=== PATIENT | male | born 1970 | race Caucasian/White ===

== ENCOUNTER 2016-11-10 12:11 | Emergency (ER) | payer OTHER ==
[~2016-11-10] VITALS: Ht 182.9 cm; Wt 76.2 kg
[~2016-11-10 12:11] MED LIST: AMOXICILLIN875 M1 PO; AMOXIL500 MG PO; BACTRIM DS 8001 TAB PO; BACTRIM DS TAB1 EACH PO; IBUPROFEN600 M1 PO; LOTRIMIN CR1 %/30 GM TOP; METFORMIN HCL500 MG PO; PAXIL20 MG PO; POLYTRIM EYE DR10 ML OPH
[2016-11-10 12:14] VITALS: BP 107/71
--- NOTE | 2016-11-10 12:43 | ED GI/GU/ABDOMINAL COMPLAINT ---
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, group managing director Exam Limitations: confusion, poor historian, physical impairment Vital Signs & Intake/Output Vital Signs & Intake/Output Vital Signs Date Time Temp Pulse Resp B/P B/P Pulse O2 O2 Flow FiO2 Mean Ox Delivery Rate 11/10 1214 98.0 82 18 107/71 95 Room Air Allergies Coded Allergies: NO KNOWN ALLERGIES (06/24/15) Reconcile Medications Amoxicillin 875 MG TABLET 1 TAB PO BID abscess/cellulitis Cephalexin (Keflex) 500 MG CAPSULE 1 CAP PO TID uti Ibuprofen 600 MG TABLET 1 TAB PO Q6PRN PRN pain with food Metformin Hydrochloride (Metformin HCl) 500 MG TAB 1 TAB PO DAILY DIABETES ( Reported) PAROXETINE HCL (Paxil) 20 MG TABLET 1 TAB PO AT BEDTIME UNKNOWN (Reported) Phenazopyridine HCl (Pyridium) 200 MG TABLET 1 TAB PO TID dysuria Polytrim (Polytrim Eye Drops) 10 ML DROPS 1 GTT OPH Q6 CONJUNCTIVITIS Sulfamethoxazole/Trimethoprim (Bactrim Ds Tablet) 800 MG-160 MG TABLET 1 TAB PO BID abscess/cellulitis Triage Note: PT TO ER VIA WHEELCHAIR FROM DETENTION FOR QUESTIONABLE UTI. PT IS INC AND WEARS BRIEF. STAFF UNABLE TO COLLECT URINE BUT STATES THAT URINE IS FOUL SMELLING Triage Nurses Notes Reviewed? yes Onset: Last week Duration: day(s):, continues in ED Timing: recent history Quality/Severity: fullness, moderate Location: suprapubic Radiation: no radiation Activities at Onset: none Prior Abdominal Problems: none Past Sexual History: Unobtainable at this time No Modifying Factors: none Associated Symptoms: dysuria HPI: 1 week prior to admission risk specialist reports patient has been holding his urine reporting that it is painful to urinate with bloating. There was no fever chills nausea vomiting diarrhea abdominal pain chest pain shortness breath headache rash bleeding. Past History Travel History Traveled to [place] past 21 day No Medical History Any Pertinent Medical History? see below for history Neurological: multiple sclerosis, MR CEREBAL PALSY SPASTIC DIPLEGIA MYOPIA AMBLYOPIA EENT: NONE Cardiovascular: NONE Respiratory: NONE Gastrointestinal: INCONTINENT Hepatic: NONE Renal: urinary incontinence, UTI Musculoskeletal: WOUND R ANKLE Psychiatric: depression Endocrine: diabetes Blood Disorders: NONE Cancer(s): NONE MANAGER TELEMETRY/Reproductive: NONE Surgical History Surgical History: non-contributory Psychosocial History What is your primary language Emirati Tobacco Use: Never used ETOH Use: denies use Illicit Drug Use: denies illicit drug use Family History Hx Contributory? No Review of Systems Review of Systems Constitutional: Reports: no symptoms. EENTM: Reports: no symptoms. Respiratory: Reports: no symptoms. Cardiovascular: Reports: no symptoms. GI: Reports: no symptoms. Genitourinary: Reports: see HPI, dysuria, pain. Musculoskeletal: Reports: no symptoms. Skin: Reports: no symptoms. Neurological/Psychological: Reports: no symptoms. Hematologic/Endocrine: Reports: no symptoms. Immunologic/Allergic: Reports: no symptoms. All Other Systems: Reviewed and Negative Physical Exam Physical Exam General Appearance: well developed/nourished, alert, awake, anxious, comfortable Head: atraumatic, normal appearance Eyes: Bilateral: normal appearance, PERRL, EOMI, normal inspection. Ears, Nose, Throat, Mouth: hearing grossly normal, moist mucous membrane Neck: normal inspection, supple, full range of motion, normal alignment Respiratory: normal breath sounds, chest non-tender, no respiratory distress, quiet respiration, lungs clear Cardiovascular: regular rate/rhythm, normal peripheral pulses, norml femoral pulses equa Peripheral Pulses: 4+ carotid (R), 4+ carotid (L) Gastrointestinal: normal bowel sounds, soft, non-tender, no organomegaly Male Genitals: normal genitalia Back: normal inspection, normal range of motion Extremities: normal range of motion, no ligament instability Neurologic/Psych: awake, alert, distribution designer II-XII nml as tested Skin: intact, normal color, warm/dry Core Measures ACS in differential dx? No Severe Sepsis Present: No Septic Shock Present: No Progress Differential Diagnosis: urinary retention, UTI/pyelo Plan of Care: Laboratory Tests 11/10/16 1241: Urine Color Cancelled, Urine Clarity Cancelled, Urine pH Cancelled, Ur Specific [place] Cancelled, Urine Protein Cancelled, Urine Ketones Cancelled, Urine Nitrite Cancelled, Urine Bilirubin Cancelled, Urine Urobilinogen Cancelled, Ur Leukocyte Esterase Cancelled, Ur Microscopic Cancelled, Urine Hemoglobin Cancelled, Urine Glucose Cancelled Microbiology 11/10 1241 URINE ROUT: Urine Culture - CAN Cancelled: Cancelled via OE: Per MD Decision Initial ED EKG: none Comments: Unable to catheterize patient. Will treat for presumptive UTI. No post void residual on bladder scan Departure Departure Time of Disposition: 1308 Disposition: HOME OR SELF CARE Condition: Stable Clinical Impression Primary Impression: Dysuria Referrals: HOUSTON DEGROOT DO (PCP/Family) Departure Forms: Customer Survey General Discharge Information Prescriptions: Current Visit Scripts Cephalexin (Keflex) 1 CAP PO TID #21 CAP Phenazopyridine HCl (Pyridium) 1 TAB PO TID #9 TAB
[2016-11-10] MEDS ORDERED: KEFLEX500 M1 PO (13:09)
[2016-11-10] MEDS ORDERED: PYRIDIUM200 M1 PO (13:09)
== END 2016-11-10 13:19 ==
LOC: ERH 12:11
DX: R30.0 Dysuria (principal)
CPT/HCPCS: 87086

== ENCOUNTER 2017-08-02 10:53 | Emergency (ER) | payer OTHER ==
[~2017-08-02] VITALS: Ht 182.9 cm; Wt 66.2 kg
[~2017-08-02 10:53] MED LIST changes: +KEFLEX500 M1 PO; +PYRIDIUM200 M1 PO
[2017-08-02 13:52] VITALS: BP 110/78
--- NOTE | 2017-08-02 14:55 | ED GENERAL ADULT ---
History of Present Illness General Chief Complaint: Skin Rash/ Abcess Stated Complaint: RASH Vital Signs & Intake/Output Vital Signs & Intake/Output Vital Signs Date Time Temp Pulse Resp B/P B/P Pulse O2 O2 Flow FiO2 Mean Ox Delivery Rate 08/02 1352 98.2 84 18 110/78 99 Room Air 08/02 1145 97.2 89 18 116/76 98 Room Air Allergies Coded Allergies: NO KNOWN ALLERGIES (06/24/15) Reconcile Medications Amoxicillin 875 MG TABLET 1 TAB PO BID abscess/cellulitis Cephalexin (Keflex) 500 MG CAPSULE 1 CAP PO TID uti Ibuprofen 600 MG TABLET 1 TAB PO Q6PRN PRN pain with food Metformin Hydrochloride (Metformin HCl) 500 MG TAB 1 TAB PO DAILY DIABETES ( Reported) PAROXETINE HCL (Paxil) 20 MG TABLET 1 TAB PO AT BEDTIME UNKNOWN (Reported) Phenazopyridine HCl (Pyridium) 200 MG TABLET 1 TAB PO TID dysuria Polytrim (Polytrim Eye Drops) 10 ML DROPS 1 GTT OPH Q6 CONJUNCTIVITIS Sulfamethoxazole/Trimethoprim (Bactrim Ds Tablet) 800 MG-160 MG TABLET 1 TAB PO BID uti Sulfamethoxazole/Trimethoprim (Bactrim Ds Tablet) 800 MG-160 MG TABLET 1 TAB PO BID abscess/cellulitis Triage Note: PER FOUP HOMME AIDE: PT HAS A WORSENING SKIN ULCER ON BUTTOCKS AND COCCYX, WITH INTERMITTANT FEVER SINCE YESTERDAY AND URINE RETENTION. Past History Travel History Traveled to [place] past 21 day No Medical History Neurological: multiple sclerosis, MR CEREBAL PALSY SPASTIC DIPLEGIA MYOPIA AMBLYOPIA EENT: NONE Cardiovascular: NONE Respiratory: NONE Gastrointestinal: INCONTINENT Hepatic: NONE Renal: urinary incontinence, UTI Musculoskeletal: WOUND R ANKLE Psychiatric: depression Endocrine: diabetes Blood Disorders: NONE Cancer(s): NONE INTERNATIONAL SALES REPRESENTATIVE/Reproductive: NONE Surgical History Surgical History: non-contributory Psychosocial History What is your primary language Chadian Tobacco Use: Never used ETOH Use: denies use Departure Departure Condition: Stable Referrals: Kike Joyner DO (PCP/Family) Departure Forms: Customer Survey General Discharge Information
[2017-08-02 15:53] LABS: ABSOLUTE BASOPHIL COUNT 0 /CUMM (0.0-0.2); ABSOLUTE EOSINOPHIL COUNT 0.2 /CUMM (0.0-0.7); ABSOLUTE GRANULOCYTE CT 4.9 /CUMM (1.4-6.5); ABSOLUTE LYMPH COUNT 2.2 /CUMM (1.2-3.4); ABSOLUTE MONOCYTE COUNT 0.5 /CUMM (0.10-0.60); BASOPHIL % 0.4 % (0.0-2.0); EOSINOPHIL % 3.1 % (0-5); GRANULOCYTE % 61.8 % (42.2-75.2); HEMATOCRIT 41.2 % (42-52); MEAN CORPUSCULAR HGB 30.8 PG (27.0-31.0); MEAN CORPUSCULAR HGB CONC 33.7 G/DL (33.0-37.0); MEAN CORPUSCULAR VOLUME 91.5 FL (80.0-94.0); MEAN PLATELET VOLUME 7.7 FL (7.4-10.4); PLATELET COUNT 225 /CUMM (130-400); RBC DISTRIBUTION WIDTH 13.9 % (11.5-14.5); RED BLOOD CELL CT 4.51 /CUMM (4.70-6.10); WHITE BLOOD CELL COUNT 7.9 /CUMM (4.8-10.8)
--- NOTE | 2017-08-02 15:56 | ED GENERAL ADULT ---
History of Present Illness General Chief Complaint: Skin Rash/ Abcess Stated Complaint: RASH Source: W10, CARE WORKER Exam Limitations: clinical condition Vital Signs & Intake/Output Vital Signs & Intake/Output Vital Signs Date Time Temp Pulse Resp B/P B/P Pulse O2 O2 Flow FiO2 Mean Ox Delivery Rate 08/02 1352 98.2 84 18 110/78 99 Room Air 08/02 1145 97.2 89 18 116/76 98 Room Air Allergies Coded Allergies: NO KNOWN ALLERGIES (06/24/15) Reconcile Medications Amoxicillin 875 MG TABLET 1 TAB PO BID abscess/cellulitis Cephalexin (Keflex) 500 MG CAPSULE 1 CAP PO TID uti Cephalexin (Keflex) 500 MG CAPSULE 1 CAP PO TID WOUND Ibuprofen 600 MG TABLET 1 TAB PO Q6PRN PRN pain with food Metformin Hydrochloride (Metformin HCl) 500 MG TAB 1 TAB PO DAILY DIABETES ( Reported) PAROXETINE HCL (Paxil) 20 MG TABLET 1 TAB PO AT BEDTIME UNKNOWN (Reported) Phenazopyridine HCl (Pyridium) 200 MG TABLET 1 TAB PO TID dysuria Polytrim (Polytrim Eye Drops) 10 ML DROPS 1 GTT OPH Q6 CONJUNCTIVITIS Sulfamethoxazole/Trimethoprim (Bactrim Ds Tablet) 800 MG-160 MG TABLET 1 TAB PO BID uti Sulfamethoxazole/Trimethoprim (Bactrim Ds Tablet) 800 MG-160 MG TABLET 1 TAB PO BID abscess/cellulitis Triage Note: PER MURIEL SAUCEDA AIDE: PT HAS A WORSENING SKIN ULCER ON BUTTOCKS AND COCCYX, WITH INTERMITTANT FEVER SINCE YESTERDAY AND URINE RETENTION. Triage Nurses Notes Reviewed? yes Onset: Gradual Duration: day(s): (2-3) Timing: recent history Injury Environment: home Severity: moderate No Modifying Factors: none HPI: Patient is a 47-year-old male with history of cerebral palsy, multiple sclerosis , non-insulin dependent diabetes presenting to the emergency department with his aide from the correction presenting with chief complaint of worsening redness to his coccyx area as well as foul-smelling urine over the past 1-2 days. Also reports fevers at the correction. No nausea or vomiting. Patient was treated for urinary tract infection about one month ago and they think symptoms may have returned. Patient unable to report any type of symptoms due to clinical history. No nausea or vomiting at the [facility]pc. No change in bowel habits. They do report that he has been holding in his urine. They have been applying Xeroform dressing and Tegaderms to the wounds on his coccyx. They have been trying to rotate him with little relief. (Natalya Lowe) Past History Travel History Traveled to [place] past 21 day No Medical History Any Pertinent Medical History? see below for history Neurological: multiple sclerosis, MR CEREBAL PALSY SPASTIC DIPLEGIA MYOPIA AMBLYOPIA EENT: NONE Cardiovascular: NONE Respiratory: NONE Gastrointestinal: INCONTINENT Hepatic: NONE Renal: urinary incontinence, UTI Musculoskeletal: WOUND R ANKLE Psychiatric: depression Endocrine: diabetes Blood Disorders: NONE Cancer(s): NONE RN PERITONEAL DIALYSIS/Reproductive: NONE Surgical History Surgical History: non-contributory Psychosocial History What is your primary language Pashto Tobacco Use: Never used ETOH Use: denies use Family History Hx Contributory? No (Natalya Lowe) Review of Systems Review of Systems Constitutional: Reports: see HPI, fever. Comments Review of systems: See HPI, All other systems negative. Constitutional, no weight loss HEENT: No visual changes no sore throat no congestion Cardiovascular: No chest pain ,palpitation , orthopnea or ankle swelling Skin, no jaundice Respiratory: No dyspnea cough sputum or hemoptysis GI: No nausea no vomiting : No hematuria Muscle skeletal: no back pain, no neck pain, Neurologic: No numbness no increased confusion Psych: No stress anxiety or depression,. Heme/endocrine: No bruising no bleeding no polyuria or polydipsia Immunology: No splenectomy or history of AIDS (Natalya Lowe) Physical Exam Physical Exam General Appearance: well developed/nourished, no apparent distress, awake, comfortable Comments: Well-developed well-nourished person in no acute distress HEENT: Normocephalic ,atraumatic Neck: Normal inspection Back: Nontender Cardiovascular: Regular rate and rhythms Respiratory: No respiratory distress.breath sounds clear to auscultation bilaterally Abdomen: Soft, nontender nondistended, no appreciable organomegaly. Normal bowel sounds. No ascites, no rebound or guarding Extremity: No edema, no calf tenderness to palpation, normal and equal pulses. Neuro: Alert to baseline, mentating at baseline per caregiver unable to follow cranial or testing. Skin: Scattered erythematous lesions noted over the coccyx region on both sides of the gluteal folds. No visualized bone, there is skin breakdown with granulation tissue over these areas. Unable to fully grade these wounds at this time. Appears to be a grade 2 with skin breakdown and ulcers lesions present. Mild surrounding erythema both sides. There is approximately 2 larger lesions approximately 1-2 cm on both sides of the coccyx. Xeroform was on the wound prior to removing it. Psych: Mood and affect is normal, smiling, appears call comfortable. Core Measures ACS in differential dx? No CVA/TIA Diagnosis: No Sepsis Present: No Sepsis Focused Exam Completed? No (Racquel CALVILLO,Natalya) Progress Differential Diagnoses I considered the following diagnoses in my evaluation of the patient: Urinary tract infection, sepsis, acute kidney injury, dehydration, cellulitis, coccyx wound, OSTEOMYELITIS Plan of Care: Orders Procedure Date/time Status LACTIC ACID 08/02 UNK Active LACTIC ACID 08/02 1646 Complete Straight Cath 08/02 1525 Active BLOOD CULTURE 08/02 1525 Active WESTERGREN SED RATE 08/02 1525 Complete C-REACTIVE PROTEIN 08/02 1525 Complete COMPREHENSIVE METABOLIC PANEL 08/02 1525 Complete CBC WITHOUT DIFFERENTIAL 08/02 1525 Complete CULTURE,URINE 08/02 1524 Active URINALYSIS 08/02 1524 Complete Laboratory Tests 08/02/17 1646: Lactic Acid Cancelled 08/02/17 1646: Anion Gap 10, Estimated GFR > 60, BUN/Creatinine Ratio 36.0 H, Glucose 118 H, Lactic Acid 0.9, Calcium 9.1, Total Bilirubin 0.6, AST 15 L, ALT 20 L, Alkaline Phosphatase 93, C-Reactive Prot, Quant 0.6, Total Protein 7.5, Albumin 4.0, Globulin 3.5, Albumin/Globulin Ratio 1.1 08/02/17 1541: CBC w Diff NO MAN DIFF REQ, RBC 4.51 L, MCV 91.5, MCH 30.8, MCHC 33.7, RDW 13.9 , MPV 7.7, Gran % 61.8, Lymphocytes % 28.1, Monocytes % 6.6, Eosinophils % 3.1, Basophils % 0.4, Absolute Granulocytes 4.9, Absolute Lymphocytes 2.2, Absolute Monocytes 0.5, Absolute Eosinophils 0.2, Absolute Basophils 0, ESR Westergren 37 H 08/02/17 1530: Urinalysis LIGHT H, Urine Color YEL, Urine Clarity HAZY H, Urine pH 7.0, Ur Specific [place] 1.025, Urine Protein NEG, Urine Ketones NEG, Urine Nitrite NEG, Urine Bilirubin NEG, Urine Urobilinogen 1.0, Ur Leukocyte Esterase NEG, Ur Microscopic SEDIMENT EXAMINED, Urine RBC 1-3, Urine WBC 5-10 H, Ur Epithelial Cells FEW, Urine Bacteria MOD H, Urine Hemoglobin NEG, Urine Glucose NEG Microbiology 08/02 1647 BLOOD: Blood Culture - RECD 08/02 1540 BLOOD: Blood Culture - RECD 08/02 1530 URINE ROUT: Urine Culture - RECD NO SIGNS OF OSTEO. PT AFEBRILE, NO ELEVATIO IN WBC. D/W HOME WITH KEFLEX FOR MILD ERYTHEMA AROUND WOUND. WILL FOLLOW UP WITH SPECIALIST. Diagnostic Imaging: Viewed by Me: Radiology Read. Discussed w/RAD: Radiology Read. Radiology Impression: PATIENT: CHASE GUERRERO PRESENT AGE: 47 PATIENT ACCOUNT NO: [id number] : 70 LOCATION: [facility] ORDERING PHYSICIAN: Natalya CALVILLO SERVICE DATE: 08/02/17 EXAM TYPE: RAD - XRY-AP PELVIS EXAMINATION: XR PELVIS CLINICAL INFORMATION: Rule out coccyx osteomyelitis or wound. COMPARISON: None TECHNIQUE: AP view of the pelvis. FINDINGS: Moderate degenerative disc disease partially visualized in the lower lumbar spine. The symphysis pubis is normal. The hip joints are unremarkable. There is a large amount stool in the rectosigmoid colon. Evaluation of the coccyx is limited on this single frontal projection. IMPRESSION: Limited evaluation of the coccyx and lower sacrum on this single frontal projection and due to a large amount stool in the rectosigmoid colon. DICTATED BY: Noel Mcfadden MD DATE/TIME DICTATED:08/02/171746 GOLD BUYER:LUISITO DATE/TIME TRANSCRIBED:08/02/171746 CONFIDENTIAL, DO NOT COPY WITHOUT APPROPRIATE AUTHORIZATION. <Electronically signed in Other Vendor System> SIGNED BY: Noel Mcfadden MD 08/02/171751 Initial ED EKG: none (Racquel CALVILLO,Natalya) Departure Departure Time of Disposition: 1802 Disposition: HOME OR SELF CARE Condition: Stable Clinical Impression Primary Impression: Foul smelling urine Secondary Impressions: Wound of gluteal cleft Qualifiers: Encounter type: initial encounter Laterality: unspecified laterality Qualified Code: S31.809A - Unspecified open wound of unspecified buttock, initial encounter Referrals: Kole DAVISON,Ildefonso Joyner DO,Kike Hauser (PCP/Family) Additional Instructions: Take antibiotics as prescribed. Change dressings daily. Follow-up with accounting support specialist. Return for any worsening symptoms or concerns. Increase fluids. Departure Forms: Customer Survey General Discharge Information Prescriptions: Current Visit Scripts Cephalexin (Keflex) 1 CAP PO TID #30 CAP (Natalya Lowe) PA/SKILLED NURSING FACILITIES PROFESSIONAL Co-Sign Statement Statement: ED Attending supervision documentation- [] I saw and evaluated the patient. I have also reviewed all the pertinent lab results and diagnostic results. I agree with the findings and the plan of care as documented in the PA's/SKILLED NURSING FACILITIES PROFESSIONAL's documentation. [X] I have reviewed the ED Record and agree with the PA's/SKILLED NURSING FACILITIES PROFESSIONAL's documentation. [] Additions or exceptions (if any) to the PAs/SKILLED NURSING FACILITIES PROFESSIONAL's note and plan are summarized below: [] (Nash Urias DO) Critical Care Note Critical Care Note Critical Care Time: non-applicable (Natalya Lowe) (Natalya Lowe)
[2017-08-02] MEDS ORDERED: KEFLEX500 M1 PO (17:52)
--- NOTE | 2017-08-02 17:52 | RADIOLOGY REPORT ---
EXAMINATION: XR PELVIS CLINICAL INFORMATION: Rule out coccyx osteomyelitis or wound. COMPARISON: None TECHNIQUE: AP view of the pelvis. FINDINGS: Moderate degenerative disc disease partially visualized in the lower lumbar spine. The symphysis pubis is normal. The hip joints are unremarkable. There is a large amount stool in the rectosigmoid colon. Evaluation of the coccyx is limited on this single frontal projection. IMPRESSION: Limited evaluation of the coccyx and lower sacrum on this single frontal projection and due to a large amount stool in the rectosigmoid colon.
== END 2017-08-02 18:50 ==
LOC: ERH 10:53
PROVIDERS: Physician Assistant
DX: S31.809A Unspecified open wound of unspecified buttock, initial encounter (principal); X58.XXXA Exposure to other specified factors, initial encounter; Y92.9 Unspecified place or not applicable; Y93.9 Activity, unspecified
CPT/HCPCS: 72170; 81001; 87040; 87086; 87147